=== PATIENT | female | born 1995 | race Caucasian/White ===

== ENCOUNTER 2017-09-21 12:43 | Outpatient (CLI) | payer SELFPAY ==
[~2017-09-21] VITALS: Ht 165.1 cm; Wt 57.6 kg
== END 2017-09-21 13:28 ==
LOC: PREOP 12:43
PROVIDERS: ATTEND Surgery
DX: Z01.818 Encounter for other preprocedural examination (principal); N63.10 Unspecified lump in the right breast, unspecified quadrant

== ENCOUNTER 2017-09-24 08:20 | Day surgery (SDC) | payer OTHER ==
[~2017-09-24] VITALS: Ht 165.1 cm; Wt 57.6 kg
[2017-09-24] MEDS ORDERED: LACTATED RINGERS 1,000 ML IV PRN (08:27)
[2017-09-24] MEDS ORDERED: VANCOMYCIN INJECTION 1,000 MG in NS (IVPB) 250 ML IV ONE (08:30)
[2017-09-24] MEDS ORDERED: VANCOMYCIN 1 GM/NS 250 ML IVPB IV ONE ×2 (08:45)
--- NOTE | 2017-09-24 08:45 | Progress Note-Pre Operative ---
Pre-Operative Progress Note H&P Reviewed The H&P was reviewed, patient examined and no changes noted. Date Seen by Provider: Sep 20, 2017 Time Seen by Provider: 15:20 Date H&P Reviewed: Sep 24, 2017 Time H&P Reviewed: 08:45 Pre-Operative Diagnosis: Right breast lump HANK DARNELL MD Sep 24, 2017 8:45 am
[2017-09-24] MEDS ORDERED: BUP/EPI 0.5% 1:200,000 (SENSORCAINE) 30 ML VIAL ONE (08:48)
[2017-09-24] MEDS ORDERED: ONDANSETRON 4 MG/2 ML (SDV) Z0FRAN ONE (08:59)
[2017-09-24] MEDS ORDERED: DEXAMETHASONE 10 MG/ML (DECADRON) 1 ML VIAL ONE (08:59)
[2017-09-24] MEDS ORDERED: proPOfol 200 MG/20 ML (DIPRIVAN) VIAL IV ONE (08:59)
[2017-09-24] MEDS ORDERED: LIDOCAINE PF 2% 5 ML (XYLOCAINE) VIAL ONE (08:59)
[2017-09-24] MEDS ORDERED: fentaNYL INJECTION 100 MCG/2 ML AMP ONE (08:59)
[2017-09-24] MEDS ORDERED: SEVOFLURANE (ULTANE) 15 ML INHAL SOLN ONE (08:59)
[2017-09-24] MEDS ORDERED: MIDAZOLAM 2 MG/2 ML (VERSED) VIAL ONE (09:00)
[2017-09-24] MEDS ORDERED: MIDAZOLAM 2 MG/2 ML (VERSED) VIAL IV ONE (09:00)
[2017-09-24 09:04] VITALS: BP 108/80
--- NOTE | 2017-09-24 09:54 | Operative Report ---
Operative Report Date of Procedure/Surgery Sep 24, 2017 Surgeon (s) HANK DARNELL MD Bargain Table Clerk (s): N/A Post-Operative Diagnosis right breast abscess Procedure Performed incision and drainage of right breast abscess Description of Procedure Anesthesia Type: General Estimated blood loss (mL): minimal Specimen(s) collected/removed pus for culture Description of the Procedure Indication for the procedure: This lady presented with a palpable lump along the medial aspect of the right breast ove a month. Ultrasound-guided biopsy was indicative of some inflammatory process. Due to increasing pain and the palpable nature of the condition, it was felt reasonable to excise the lump. As it'll return checker, described under the operative report, an abscess was encountered. Informed consent was obtained after reviewing the procedure in detail. Description of procedure: She was placed supine on the operating table and general anesthesia induced. A gram of vancomycin was administered intravenously as prophylaxis against wound infection. Right breast was prepared and draped in the usual sterile manner. A 2 cm curved incision was made medial to the nipple-areolar complex and an abscess encountered. S was sent for culture and sensitivity and the cavity irrigated with saline. Hemostasis was achieved using cautery. A Alton drain was left in the abscess cavity to promote postoperative drainage. It was secured using a 2-0 silk suture. A nonadherent dressing was then applied. She tolerated procedure well, was extubated in the operating room and taken to the recovery room in a stable condition Findings of the Procedure See op report Allergies and Home Medications Allergies Coded Allergies: clindamycin (Verified Allergy, Mild, HIVES, 09/21/17) Home Medications No Active Prescriptions or Reported Meds Patient Home Medication List Home Medication List Reviewed: Yes HANK DARNELL MD Sep 24, 2017 9:54 am
[2017-09-24] MEDS ORDERED: ACHD5005 PO (09:55)
[2017-09-24] MEDS ORDERED: MEPERIDINE (DEMEROL) INJ 50 MG/ML ONE (09:55)
--- NOTE | 2017-09-24 09:56 | Discharge Inst-Simple/Standard ---
Discharge Inst-Standard Discharge Medications New, Converted or Re-Newed RX: RX on Chart Patient Instructions/Follow Up Plan of Care/Instructions/FU: change dressing with sterile gauze once a day. Follow-up in a week. Please educate on a Alton drain Activity as Tolerated: Yes Discharge Diet: No Restrictions HANK DARNELL MD Sep 24, 2017 9:55 am
[2017-09-24] MEDS ORDERED: morphine INJ 10 MG/ML 1ML (SYR OR VIAL) IVP PRN (10:15)
[2017-09-24] MEDS ORDERED: MEPERIDINE (DEMEROL) INJ 50 MG/ML IVP PRN (10:15)
[2017-09-24] MEDS ORDERED: ONDANSETRON 4 MG/2 ML (SDV) Z0FRAN IVP PRN (10:15)
--- NOTE | 2017-09-24 10:40 | Anesthesia-General Post-Op ---
General Patient Condition Mental Status/LOC: Same as Preop Cardiovascular: Satisfactory Nausea/Vomiting: Absent Respiratory: Satisfactory Pain: Controlled Complications: Absent Post Op Complications Complications None Follow Up Care/Instructions Patient Instructions None needed. Anesthesia/Patient Condition Patient Condition Patient is doing well, no complaints, stable vital signs, no apparent adverse anesthesia problems. No complications reported per nursing. SUGAR MCCLURE CRNA Sep 24, 2017 10:39
[2017-09-24 10:45] VITALS: BP 101/69
[2017-09-24 11:15] VITALS: BP 106/89
[2017-09-24 11:29] VITALS: BP 106/89
== END 2017-09-24 11:30 | disposition home or self-care (01) ==
LOC: SDC 08:20
PROVIDERS: ATTEND Surgery
DX: N61.1 Abscess of the breast and nipple (principal)
CPT/HCPCS: 84703; 87070; 87075; 87081; 87101; 87205